=== PATIENT | male | born 1995 | race Caucasian/White ===

== ENCOUNTER 2017-10-28 10:43 | Emergency (ER) | payer OTHER | END 2017-10-28 13:09 | disposition home or self-care (01) | LOC: FTE 10:43 | DX: S63.501A Unspecified sprain of right wrist, initial encounter (principal); X58.XXXA Exposure to other specified factors, initial encounter; Y92.9 Unspecified place or not applicable | CPT/HCPCS: 73110; 73110-RT; 99283-25 ==

== ENCOUNTER 2018-05-13 18:32 | Emergency (ER) | payer OTHER | END 2018-05-13 19:50 | disposition home or self-care (01) | LOC: E/R 18:32 | DX: K08.89 Other specified disorders of teeth and supporting structures (principal) | CPT/HCPCS: 99283; Z7502 ==

== ENCOUNTER 2018-06-02 16:07 | Emergency (ER) | payer OTHER ==
[2018-06-02] MEDS: HYDROCODONE/APAP (5/325) TAB PO (17:54)
[2018-06-02] MEDS: CLINDAMYCIN 300 MG INJ IM (17:57)
== END 2018-06-02 18:22 | disposition home or self-care (01) ==
LOC: FTE 18:22
DX: K04.7 Periapical abscess without sinus (principal)
CPT/HCPCS: 96372; 99284-25

== ENCOUNTER 2018-06-06 20:44 | Emergency (ER) | payer OTHER ==
[2018-06-06] MEDS: HYDROCODONE/APAP (5/325) TAB PO (23:12)
[2018-06-06] MEDS: KETOROLAC 60 MG INJ IM (23:12)
== END 2018-06-06 23:33 | disposition home or self-care (01) ==
LOC: FTE 23:33
DX: K04.7 Periapical abscess without sinus (principal)
CPT/HCPCS: 96372; 99284-25

== ENCOUNTER 2019-04-23 16:45 | Emergency (ER) | payer OTHER | END 2019-04-23 17:57 | disposition home or self-care (01) | LOC: FTE 17:57 | DX: F41.9 Anxiety disorder, unspecified (principal); Z76.0 Encounter for issue of repeat prescription | CPT/HCPCS: 99281; Z7502 ==